=== PATIENT | male | born 1965 | race Caucasian/White ===

== ENCOUNTER 2017-04-05 11:45 | Day surgery (SDC) | payer OTHER ==
[2017-04-05] MEDS ORDERED: LIDOCAINE 2% (SDV) 5 ML INJ (17:30)
[2017-04-05] MEDS ORDERED: MIDAZOLAM 1 MG/ML 2 ML INJ (17:30)
[2017-04-05] MEDS ORDERED: PROPOFOL 40 ML (17:30)
== END 2017-04-05 17:51 | disposition home or self-care (01) ==
LOC: GIL 11:45
DX: Z12.11 Encounter for screening for malignant neoplasm of colon (principal); D12.0 Benign neoplasm of cecum; K64.8 Other hemorrhoids; K22.2 Esophageal obstruction
CPT/HCPCS: 43235; 88305